=== PATIENT | female | born 1975 | race Caucasian/White ===

== ENCOUNTER 2018-12-24 11:36 | Emergency (ER) | payer MEDICAID, BC ==
[2018-12-24] MEDS ORDERED: Diph,Pert(Acell),Tet Vac 0.5 ML SYR IM ONE (13:14)
[2018-12-24] MEDS ORDERED: KETOROLAC 30 MG/ML VIAL IM ONE (13:15)
[2018-12-24] MEDS ORDERED: DOXYCYCLINE HYCLATE 100 MG CAPSULE PO ONE (13:21)
--- NOTE | 2018-12-24 13:33 | Emergency Department Record ---
History of Present Illness - General Chief Complaint: Animal Bite Stated Complaint: CAT BITE BOTH LEGS Time Seen by Provider: 12/24/18 12:50 Source: Patient Mode of Arrival: Ambulatory Limitations: No limitations - History of Present Illness Initial Comments: The patient is here due to being bitten by a stray cat about 2 hours ago. She was bit over the anterior L lower leg and had a mild scratch to the R lower leg. The patient denies any numbness distal to the injury and states she does need a Td shot. The cat did not have a collar on and was on her porch. The lower leg wounds did not bleed per the patient. MD Complaint: Animal bite Onset/Timin -: Hour(s) Location - General: Other Animal: Cat Description: Unknown animal Mechanism: Bite, Scratch Pain Description: Burning Severity scale (1-10): 4 Context: Animals fighting Associated Symptoms: Bleeding, Erythema - Related Data Patient Tetanus UTD (within 5 yrs): No Home Medications Medication Instructions Recorded Confirmed Last Taken Budesonide/Formoterol Fumarate 2 puff PO BID 12/24/18 12/24/18 12/24/18 [Symbicort 160-4.5 Mcg Inhaler] Budesonide/Formoterol Fumarate 2 puff PO BID 12/24/18 12/24/18 12/24/18 [Symbicort 160-4.5 Mcg Inhaler] Cholecalciferol (Vitamin D3) 1 cap PO WEEKLY 12/24/18 12/24/18 01/15/18 [Vitamin D3] Citalopram Hydrobromide 1 tab PO DAILY 12/24/18 12/24/18 12/23/18 [Citalopram HBr] Hydroxyzine HCl 1 tab PO DAILY 12/24/18 12/24/18 12/23/18 Tiotropium [place] [Spiriva 2 puff PO DAILY 12/24/18 12/24/18 12/24/18 Respimat] Previous Rx's Medication Instructions Recorded Doxycycline Monohydrate [Mondoxyne 100 mg PO BID 7 Days #14 capsule 12/24/18 Nl] Allergies Allergy/AdvReac Type Severity Reaction Status Date / Time acetaminophen [From [place]] Allergy ITCHING Verified 12/24/18 12:37 aspirin Allergy ASTHMA Verified 12/24/18 12:37 hydrocodone bitartrate Allergy ITCHING Verified 12/24/18 12:37 [From [place]] morphine Allergy HEADACHE Verified 12/24/18 12:37 Penicillins Allergy ASTHMA Verified 12/24/18 12:37 Travel Screening - Travel/Exposure Within Last 30 Days Have you traveled within the last 30 days?: No - Travel/Exposure Within Last Year Have you traveled outside the [place] in the last year?: No - Additonal Travel Details Have you been exposed to anyone with a communicable illness?: No - Travel Symptoms Symptom Screening: None Review of Systems Constitutional: Denies: Chills, Fever Past Medical History - SOCIAL HISTORY Smoking Status: Never smoker Alcohol Use: None Drug Use: None - RESPIRATORY Hx Respiratory Disorders: Yes Hx Asthma: Yes - CARDIOVASCULAR Hx Cardio Disorders: No - NEURO Hx Neuro Disorders: No - GI Hx GI Disorders: No - Hx Genitourinary Disorders: No - ENDOCRINE Hx Endocrine Disorders: No - MUSCULOSKELETAL Hx Musculoskeletal Disorders: No - PSYCH Hx Psych Problems: Yes Hx Anxiety: Yes Hx Depression: Yes - HEMATOLOGY/ONCOLOGY Hx Hematology/Oncology Disorders: No Family Medical History Any Significant Family History?: No Physical Exam - General General Appearance: Alert, Cooperative, No acute distress - Extremities Extremities exam: Full ROM, Normal capillary refill, Tenderness (There is tenderness around the L leg wounds but no swelling, bruising, or erythema.), Other (The lower legs are NVI distally. The leg wounds appear to be deep abrasions and not puncture wounds. There is no bleeding with palpation.). negative: Normal inspection (There are 3 areas of what appear to be superficial bite wounds to the anterior L mid lower leg. The wounds are not bleeding and there is no swelling or any signs of infection. None of the 3 wounds are over 1 cm. There is a very superficial abrasion to the anterior R lower leg anteriorly which was from a scratch by the cat.), Joint swelling - Neurological Neurological exam: Alert, Normal gait, Oriented X3. negative: Abnormal gait, Altered, Motor sensory deficit - Skin Skin exam: negative: Rash, Warm Course Vital Signs 12/24/18 12:46 Temperature 98.2 F Pulse Rate 84 Respiratory 20 Rate Blood Pressure 146/82 Pulse Ox 96 - Reevaluation(s) Reevaluation #1: I did have a long talk with the patient regarding Rabies shots. She would like to make an attempt to to find the cat. She is instructed to try to find the cat and then if successful contact animal control for quarantining the cat. If she unable to find the cat she is to start the Rabies shots in 3 days. 12/24/18 13:37 12/24/18 14:14 Medical Decision Making - Data Complexity MDM Data: X-Ray Ordered and/or Reviewed - Radiology Data Radiology results: Report reviewed (L lower leg: Neg for F/B or soft tissue air. ) Disposition Disposition: Discharge Clinical Impression: Cat bite involving extremity Disposition: Home, Self-Care Condition: (2) Stable Instructions: Animal Bite (ED) Additional Instructions: Keep the wounds washed daily and dressed with Abx ointment. Take the Doxycycline as directed. Please contact animal control on Wednesday and if unable to find the cat please start the Rabies shots early this next week. Return to the ER for any signs of infection. Prescriptions: Doxycycline Monohydrate [Mondoxyne Nl] 100 mg PO BID 7 Days #14 capsule Forms: Patient Portal Access Time of Disposition: 13:54 Quality - Quality Measures Quality Measures: N/A - Blood Pressure Screening View Details: Yes Does Patient Have Any of the Following: No Blood Pressure Classification: Pre-Hypertensive BP Reading Systolic Measurement: 146 Diastolic Measurement: 82 Screening for High Blood Pressure: < Pre-Hypertensive BP, F/U Documented > [ G8950] Pre-Hypertensive Follow-up Interventions: Referral to alternative/primary care provider.
--- NOTE | 2018-12-25 13:34 | RADIOLOGY REPORT ---
EXAM: LOWER LEG, LEFT HISTORY: CAT BITE TODAY WITHIN THE LEFT LOWER LEG. PUNCTURE WOUND WITHIN THE VINCENT. TECHNIQUE: AP and lateral views of the left tibia and fibula were obtained. COMPARISON: None. FINDINGS: A skin marker was placed at the site of puncture wound. There is no radiopaque foreign body or soft tissue air. The bones are intact. Plantar and posterior calcaneal spurs are present. IMPRESSION: NO ACUTE OSSEOUS ABNORMALITY OR RADIOPAQUE FOREIGN BODY. JOB NUMBER: [id number] [facility]
== END 2018-12-24 14:18 | disposition home or self-care (01) ==
LOC: ER 11:36
DX: S80.872A Other superficial bite, left lower leg, initial encounter (principal); S80.811A Abrasion, right lower leg, initial encounter; W55.01XA Bitten by cat, initial encounter
CPT/HCPCS: 90715; 96372; 99283; J1885

== ENCOUNTER 2019-01-04 14:33 | Emergency (ER) | payer MEDICAID, BC ==
[2019-01-04] MEDS ORDERED: RABIES IMMUNE GLOBULIN 150 UNIT/ML IM ONE ×2 (14:59→15:06)
[2019-01-04] MEDS ORDERED: RABIES VACCINE (RABAVERT) 2.5 IU VIAL IM ONE (14:59)
--- NOTE | 2019-01-04 15:13 | Emergency Department Record ---
History of Present Illness - General Chief Complaint: Animal Bite Stated Complaint: RABIES SHOT Time Seen by Provider: 01/04/19 15:02 Mode of Arrival: Ambulatory - History of Present Illness Initial Comments: bitten by a cat 1 days ago and the can't find the cat. Health department said to come in for rabies treatment. Wound on the left lower leg is healing nicely. Complaint: Animal bite Onset/Timin -: Days(s) Animal: Cat Description: Wild animal Mechanism: Bite, Scratch Severity scale (1-10): 1 Context: Other Associated Symptoms: None Treatments Prior to Arrival: Wound dressing(s) - Related Data Patient Tetanus UTD (within 5 yrs): Yes Previous Rx's Medication Instructions Recorded Doxycycline Monohydrate [Mondoxyne 100 mg PO BID 7 Days #14 capsule 12/24/18 Nl] Allergies Allergy/AdvReac Type Severity Reaction Status Date / Time aspirin Allergy ASTHMA Verified 01/04/19 14:49 hydrocodone bitartrate Allergy ITCHING Verified 01/04/19 14:49 [From [place]] morphine Allergy HEADACHE Verified 01/04/19 14:49 Penicillins Allergy ASTHMA Verified 01/04/19 14:49 Travel Screening - Travel/Exposure Within Last 30 Days Have you traveled within the last 30 days?: No - Travel/Exposure Within Last Year Have you traveled outside the [place] in the last year?: No - Additonal Travel Details Have you been exposed to anyone with a communicable illness?: No - Travel Symptoms Symptom Screening: None Review of Systems Reviewed: No additional complaints except as noted below Constitutional: Reports: As per HPI. Denies: Chills, Fever, Malaise, Night sweats, Weakness, Weight change Eyes: Reports: As per HPI. Denies: Eye discharge, Eye pain, Photophobia, Vision change ENT: Reports: As per HPI. Denies: Congestion, Dental pain, Ear pain, Epistaxis , Hearing loss, Throat pain Respiratory: Reports: As per HPI. Denies: Cough, Dyspnea, Hemoptysis, Stridor, Wheezes Cardiovascular: Reports: As per HPI. Denies: Arrhythmia, Chest pain, Dyspnea on exertion, Edema, Murmurs, Orthopnea, Palpitations, Paroxysmal nocturnal dyspnea, Rheumatic Fever, Syncope Endocrine: Reports: As per HPI. Denies: Fatigue, Heat or cold intolerance, Polydipsia, Polyuria Gastrointestinal: Reports: As per HPI. Denies: Abdominal pain, Constipation, Diarrhea, Hematemesis, Hematochezia, Melena, Nausea, Vomiting Genitourinary: Reports: As per HPI. Denies: Abnormal menses, Discharge, Dyspareunia, Dysuria, Frequency, Hematuria, Incontinence, Retention, Urgency Musculoskeletal: Reports: As per HPI. Denies: Arthralgia, Back pain, Gout, Joint swelling, Myalgia, Neck pain Skin: Reports: As per HPI. Denies: Bruising, Change in color, Change in hair/ nails, Lesions, Pruritus, Rash Neurological: Reports: As per HPI. Denies: Abnormal gait, Confusion, Headache, Numbness, Paresthesias, Seizure, Tingling, Tremors, Vertigo, Weakness Psychiatric: Reports: As per HPI. Denies: Anxiety, Auditory hallucinations, Depression, Homicidal thoughts, Suicidal thoughts, Visual hallucinations Hematological/Lymphatic: Reports: As per HPI. Denies: Anemia, Blood Clots, Easy bleeding, Easy bruising, Swollen glands Past Medical History - SOCIAL HISTORY Smoking Status: Never smoker Alcohol Use: None Drug Use: None - RESPIRATORY Hx Respiratory Disorders: Yes Hx Asthma: Yes - CARDIOVASCULAR Hx Cardio Disorders: No - NEURO Hx Neuro Disorders: No - GI Hx GI Disorders: No - Hx Genitourinary Disorders: No - ENDOCRINE Hx Endocrine Disorders: No - MUSCULOSKELETAL Hx Musculoskeletal Disorders: No - PSYCH Hx Psych Problems: Yes Hx Anxiety: Yes Hx Depression: Yes - HEMATOLOGY/ONCOLOGY Hx Hematology/Oncology Disorders: No Family Medical History Any Significant Family History?: Yes Physical Exam - General General Appearance: Alert, Oriented x3, Cooperative, No acute distress - Head Head exam: Normal inspection - Eye Eye exam: Normal appearance, PERRL Pupils: Normal accommodation - ENT ENT exam: Normal exam, Mucous membranes moist, Normal external ear exam, Normal orophraynx, TM's normal bilaterally Ear exam: Normal external inspection. negative: External canal tenderness Nasal Exam: Normal inspection. negative: Discharge, Sinus tenderness Mouth exam: Normal external inspection, Tongue normal Teeth exam: Normal inspection. negative: Dental caries Throat exam: Normal inspection. negative: Tonsillar erythema, Tonsillar exudate - Neck Neck exam: Normal inspection, Full ROM. negative: Tenderness - Respiratory Respiratory exam: Normal lung sounds bilaterally. negative: Respiratory distress - Cardiovascular Cardiovascular Exam: Regular rate, Normal rhythm, Normal heart sounds - GI/Abdominal GI/Abdominal exam: Soft, Normal bowel sounds. negative: Tenderness - Rectal Rectal exam: Deferred - exam: Deferred - Extremities Extremities exam: Normal inspection, Full ROM, Normal capillary refill. negative: Tenderness - Back Back exam: Reports: Normal inspection, Full ROM. Denies: Muscle spasm, Rash noted, Tenderness - Neurological Neurological exam: Alert, Normal gait, Oriented X3, Reflexes normal - Psychiatric Psychiatric exam: Normal affect, Normal mood - Skin Skin exam: Other (wounds are healing nicely) Course Vital Signs 01/04/19 14:38 Temperature 97.9 F Pulse Rate 76 Respiratory 18 Rate Blood Pressure 155/77 Pulse Ox 97 Disposition Clinical Impression: Rabies exposure Cat bite Qualifiers: Encounter type: sequela Qualified Code(s): W55.01XS - Bitten by cat, sequela Disposition: Home, Self-Care Condition: (1) Good Instructions: Animal Bite (ED) Additional Instructions: return in 3 days, 7 days and 14 days for vaccine booster shots Time of Disposition: 15:13 Quality - Quality Measures Quality Measures: N/A - Blood Pressure Screening Does Patient Have Any of the Following: No Blood Pressure Classification: Hypertensive Reading Systolic Measurement: 155 Diastolic Measurement: 77 Screening for High Blood Pressure: < Pre-Hypertensive BP, F/U Documented > [ G8950] Pre-Hypertensive Follow-up Interventions: Referral to alternative/primary care provider.
== END 2019-01-04 15:50 | disposition home or self-care (01) ==
LOC: ER 14:33
DX: Z20.3 Contact with and (suspected) exposure to rabies (principal); S80.872A Other superficial bite, left lower leg, initial encounter; W55.01XA Bitten by cat, initial encounter
CPT/HCPCS: 90375; 90675; 96372; 99282

== ENCOUNTER 2019-01-07 19:23 | Emergency (ER) | payer MEDICAID, BC ==
[2019-01-07] MEDS ORDERED: RABIES VACCINE (RABAVERT) 2.5 IU VIAL IM ONE (19:26)
--- NOTE | 2019-01-07 19:28 | Emergency Department Record ---
History of Present Illness - General Chief Complaint: Animal Bite Stated Complaint: 2ND RABIES SHOT Time Seen by Provider: 01/07/19 19:24 Source: Patient Mode of Arrival: Ambulatory Limitations: No limitations - History of Present Illness Initial Comments: 43 yo female presents to ED for her 3rd rabies vaccination. Patient was bitten by a cat 2 weeks ago, reports that her left lower extremity is healing well following her bites. Patient also reports finishing her Doxycyline several days ago. Patient denies complications following her cat bite. Patient denies health problems other than asthma. MD Complaint: Animal bite Onset/Timin -: Week(s) Left: Lower Leg Animal: Cat Mechanism: Bite Associated Symptoms: None - Related Data Previous Rx's Medication Instructions Recorded Doxycycline Monohydrate [Mondoxyne 100 mg PO BID 7 Days #14 capsule 12/24/18 ] Allergies Allergy/AdvReac Type Severity Reaction Status Date / Time aspirin Allergy ASTHMA Verified 01/04/19 14:49 hydrocodone bitartrate Allergy ITCHING Verified 01/04/19 14:49 [From [place]] morphine Allergy HEADACHE Verified 01/04/19 14:49 Penicillins Allergy ASTHMA Verified 01/04/19 14:49 Review of Systems Constitutional: Denies: Chills, Fever, Malaise, Night sweats Eyes: Denies: Eye discharge, Eye pain ENT: Denies: Congestion, Ear pain, Epistaxis Respiratory: Denies: Cough, Dyspnea Cardiovascular: Denies: Chest pain, Dyspnea on exertion Endocrine: Denies: Fatigue, Heat or cold intolerance Gastrointestinal: Denies: Abdominal pain, Nausea, Vomiting Genitourinary: Denies: Incontinence, Retention Musculoskeletal: Denies: Arthralgia, Back pain Skin: Reports: Other (Healing wound to the LLE). Denies: Bruising, Change in color Neurological: Denies: Abnormal gait, Confusion, Headache, Seizure Psychiatric: Denies: Anxiety Hematological/Lymphatic: Denies: Anemia, Blood Clots Past Medical History - SOCIAL HISTORY Smoking Status: Never smoker Drug Use: None - RESPIRATORY Hx Respiratory Disorders: Yes Hx Asthma: Yes - CARDIOVASCULAR Hx Cardio Disorders: No - NEURO Hx Neuro Disorders: No - GI Hx GI Disorders: No - Hx Genitourinary Disorders: No - ENDOCRINE Hx Endocrine Disorders: No - MUSCULOSKELETAL Hx Musculoskeletal Disorders: No - PSYCH Hx Psych Problems: Yes Hx Anxiety: Yes Hx Depression: Yes - HEMATOLOGY/ONCOLOGY Hx Hematology/Oncology Disorders: No Physical Exam - General General Appearance: Alert, Oriented x3, Cooperative, No acute distress Limitations: No limitations - Head Head exam: Atraumatic, Normocephalic, Normal inspection Head exam detail: negative: Abrasion, Contusion, Swan's sign, General tenderness, Hematoma, Laceration - Eye Eye exam: Normal appearance. negative: Conjunctival injection, Periorbital swelling, Periorbital tenderness, Scleral icterus - ENT Ear exam: negative: Auricular hematoma, Auricular trauma Nasal Exam: negative: Active bleeding, Discharge, Dried blood, Foreign body Mouth exam: negative: Drooling, Laceration, Muffled voice, Tongue elevation - Neck Neck exam: Normal inspection. negative: Meningismus, Tenderness - Respiratory Respiratory exam: Normal lung sounds bilaterally. negative: Rales, Respiratory distress, Rhonchi, Stridor - Cardiovascular Cardiovascular Exam: Regular rate, Normal rhythm, Normal heart sounds - GI/Abdominal GI/Abdominal exam: Soft. negative: Rebound, Rigid, Tenderness - Rectal Rectal exam: Deferred - exam: Deferred - Extremities Extremities exam: Other (Healing wounds to the LLE on examination without evidence for secondary infection.). negative: Calf tenderness, Pedal edema, Tenderness - Back Back exam: Denies: CVA tenderness (R) - Neurological Neurological exam: Alert, Normal gait, Oriented X3 - Psychiatric Psychiatric exam: Normal affect, Normal mood - Skin Skin exam: Normal color. negative: Abrasion Type of lesion: negative: abrasion Course - Reevaluation(s) Reevaluation #1: 01/07/19 19:32 Patient was seen and examined, wounds to the LLE are healing well without evidence for infection. 3rd Rabies vaccination administered, patient appears stable for discharge at this time. Disposition Disposition: Discharge Clinical Impression: Encounter for repeat administration of rabies vaccination Disposition: Home, Self-Care Condition: (2) Stable Instructions: Animal Bite (ED) Additional Instructions: Return to ED if your symptoms worsen or if you have any concerns. Final rabies vaccination in 1 week. Follow-up with your family doctor in 1 week as directed. Forms: Patient Portal Access Time of Disposition: 19:28 Quality - Quality Measures Quality Measures: N/A - Blood Pressure Screening Does Patient Have Any of the Following: No Blood Pressure Classification: Pre-Hypertensive BP Reading Systolic Measurement: 130 Diastolic Measurement: 87 Screening for High Blood Pressure: < Pre-Hypertensive BP, F/U Documented > [ G8950] Pre-Hypertensive Follow-up Interventions: Referral to alternative/primary care provider.
== END 2019-01-07 19:40 | disposition home or self-care (01) ==
LOC: ER 19:23
DX: Z20.3 Contact with and (suspected) exposure to rabies (principal); S80.872A Other superficial bite, left lower leg, initial encounter; W55.01XA Bitten by cat, initial encounter
CPT/HCPCS: 90675; 96372; 99282

== ENCOUNTER 2019-05-06 18:44 | Emergency (ER) | payer MEDICAID, BC ==
[2019-05-06] MEDS ORDERED: IPRATROPIUM/ALBUTEROL (0.5MG/3MG) NEB INH ONE (19:16)
[2019-05-06] MEDS ORDERED: METHYLPREDNISOLONE PF 125MG/VIAL IVP ONE (19:16)
[2019-05-06 19:31] LABS: ABSOLUTE NEUTROPHIL COUNT 5.46; BASO % 0.4 % (0-6); EOS % 2.3 % (0-6); HEMATOCRIT 38.9 % (35.0-47.0); HEMOGLOBIN 12.6 gm/dl (11.6-16.0); LYMPH % 20.7 % (16-45); MEAN CELL VOLUME 86.1 fl (81-97); MEAN CORPUSCULAR HEMOGLOBIN 27.9 pg (27-33); MEAN CORPUSCULAR HGB CONC 32.4 g/dl (32-36); MEAN PLATELET VOLUME 10.4 fl (7.4-10.4); MONO % 5.6 % (0-9); PLATELET COUNT 299 K/uL (130-400); RED BLOOD COUNT 4.52 M/uL (3.80-5.40); RED CELL DISTRIBUTION WIDTH 14.4 % (11.5-14.5); WHITE BLOOD COUNT W/O DIFF 7.7 K/uL (4.2-12.2)
[2019-05-06 19:40] LABS: BLOOD UREA NITROGEN 12 mg/dL (6-20); CREATININE 0.8 mg/dL (0.5-0.9); EST GLOMERULAR FILTRATION RATE > 60 mL/min
[2019-05-06 19:41] LABS: TOTAL PROTEIN 6.7 g/dL (6.6-8.7)
[2019-05-06 19:43] LABS: GLUCOSE,RANDOM 126 mg/dL (74-109)
[2019-05-06 19:45] LABS: ALB/GLOB RATIO 1.4 (1.1-1.8); ALBUMIN 3.9 g/dL (4.0-5.0); ALT/SGPT 15 U/L (<33); AST/SGOT 14 U/L (10.0-35.0)
[2019-05-06 19:46] LABS: ALKALINE PHOSPHATASE 73 U/L (35-104)
[2019-05-06 19:48] LABS: NTpro B-NATRIURETIC PEPTIDE 75.47 pg/mL (<125)
[2019-05-06] MEDS ORDERED: KETOROLAC 30 MG/ML VIAL IVP ONE (20:34)
[2019-05-06] MEDS ORDERED: PROMETHAZINE W/CODEINE 10ML UD PO ONE (20:38)
--- NOTE | 2019-05-06 20:44 | Emergency Department Record ---
History of Present Illness - General Chief Complaint: Headache Migraine Stated Complaint: FLU LIKE SYMPTOMS Time Seen by Provider: 05/06/19 19:04 Source: Patient Mode of Arrival: Ambulatory Limitations: No limitations - History of Present Illness Initial Comments: pt has had anuri for a week. she was seen at an urgent care and was started on doxycyclin. she feels no better and feens ildefonso ESTES Complaint: Cough, Nasal congestion, Rhinorrhea, Sinus pain -: Days(s) Severity: Moderate Severity scale (1-10): 3 Consistency: Constant Improves With: Nothing Worsens With: Nothing Context: Sick contacts Associated Symptoms: Cough, Shortness of breath Treatments Prior to Arrival: Antibiotics - Related Data Previous Rx's Medication Instructions Recorded Doxycycline Monohydrate [Mondoxyne 100 mg PO BID 7 Days #14 capsule 12/24/18 Nl] Prednisone [Prednisone 20Mg] 20 mg PO Q12HR #8 tab 05/06/19 Promethazine HCl/Codeine 5 - 10 ml PO .AT BEDTIME PRN #118 05/06/19 [Phenergan W/Codeine] ml Allergies Allergy/AdvReac Type Severity Reaction Status Date / Time acetaminophen [From Vicodin] Allergy ITCHING Verified 05/06/19 18:59 aspirin Allergy ASTHMA Verified 05/06/19 18:58 hydrocodone [From Vicodin] Allergy ITCHING Verified 05/06/19 18:59 hydrocodone bitartrate Allergy ITCHING Verified 05/06/19 18:58 [From [place]] morphine Allergy HEADACHE Verified 05/06/19 18:58 Penicillins Allergy ASTHMA Verified 05/06/19 18:58 Travel Screening - Travel/Exposure Within Last 30 Days Have you traveled within the last 30 days?: No Review of Systems Reviewed: No additional complaints except as noted below Constitutional: Reports: As per HPI. Denies: Chills, Fever, Malaise, Night sweats, Weakness, Weight change Eyes: Reports: As per HPI. Denies: Eye discharge, Eye pain, Photophobia, Vision change ENT: Reports: As per HPI. Denies: Congestion, Dental pain, Ear pain, Epistaxis, Hearing loss, Throat pain Respiratory: Reports: As per HPI, Cough, Dyspnea. Denies: Hemoptysis, Stridor, Wheezes Cardiovascular: Reports: As per HPI. Denies: Arrhythmia, Chest pain, Dyspnea on exertion, Edema, Murmurs, Orthopnea, Palpitations, Paroxysmal nocturnal dyspnea, Rheumatic Fever, Syncope Endocrine: Reports: As per HPI. Denies: Fatigue, Heat or cold intolerance, Polydipsia, Polyuria Gastrointestinal: Reports: As per HPI. Denies: Abdominal pain, Constipation, Diarrhea, Hematemesis, Hematochezia, Melena, Nausea, Vomiting Genitourinary: Reports: As per HPI. Denies: Abnormal menses, Discharge, Dyspar eunia, Dysuria, Frequency, Hematuria, Incontinence, Retention, Urgency Musculoskeletal: Reports: As per HPI. Denies: Arthralgia, Back pain, Gout, Joint swelling, Myalgia, Neck pain Skin: Reports: As per HPI. Denies: Bruising, Change in color, Change in hair/nails, Lesions, Pruritus, Rash Neurological: Reports: As per HPI. Denies: Abnormal gait, Confusion, Headache, Numbness, Paresthesias, Seizure, Tingling, Tremors, Vertigo, Weakness Psychiatric: Reports: As per HPI. Denies: Anxiety, Auditory hallucinations, Depression, Homicidal thoughts, Suicidal thoughts, Visual hallucinations Hematological/Lymphatic: Reports: As per HPI. Denies: Anemia, Blood Clots, Easy bleeding, Easy bruising, Swollen glands Past Medical History - SOCIAL HISTORY Smoking Status: Never smoker Alcohol Use: None Drug Use: None - RESPIRATORY Hx Respiratory Disorders: Yes Hx Asthma: Yes - CARDIOVASCULAR Hx Cardio Disorders: No - NEURO Hx Neuro Disorders: No - GI Hx GI Disorders: No - Hx Genitourinary Disorders: No - ENDOCRINE Hx Endocrine Disorders: No - MUSCULOSKELETAL Hx Musculoskeletal Disorders: No - PSYCH Hx Psych Problems: Yes Hx Anxiety: Yes Hx Depression: Yes - HEMATOLOGY/ONCOLOGY Hx Hematology/Oncology Disorders: No Family Medical History Any Significant Family History?: No Physical Exam - General General Appearance: Alert, Oriented x3, Cooperative, Mild distress - Head Head exam: Normal inspection - Eye Eye exam: Normal appearance, PERRL, EOMI Pupils: Normal accommodation - ENT ENT exam: Normal exam, Mucous membranes moist, Normal external ear exam, Normal orophraynx Ear exam: Normal external inspection. negative: External canal tenderness Nasal Exam: Normal inspection. negative: Discharge, Sinus tenderness Mouth exam: Normal external inspection, Tongue normal Teeth exam: Normal inspection. negative: Dental caries Throat exam: Normal inspection. negative: Tonsillar erythema, Tonsillar exudate - Neck Neck exam: Normal inspection, Full ROM. negative: Tenderness - Respiratory Respiratory exam: Normal lung sounds bilaterally. negative: Respiratory distress - Cardiovascular Cardiovascular Exam: Regular rate, Normal rhythm, Normal heart sounds - GI/Abdominal GI/Abdominal exam: Soft, Normal bowel sounds. negative: Tenderness - Rectal Rectal exam: Deferred - exam: Deferred - Extremities Extremities exam: Normal inspection, Full ROM, Normal capillary refill. negative: Tenderness - Back Back exam: Reports: Normal inspection, Full ROM. Denies: Muscle spasm, Rash noted, Tenderness - Neurological Neurological exam: Alert, CN II-XII intact, Normal gait, Oriented X3 - Psychiatric Psychiatric exam: Normal affect, Normal mood - Skin Skin exam: Dry, Intact, Normal color, Warm Course Vital Signs 05/06/19 05/06/19 05/06/19 18:53 19:44 20:10 Temperature 98.4 F Pulse Rate 68 Pulse Rate [ 87 Left] Pulse Rate [ 76 Pulse Ox Probe] Respiratory 16 16 18 Rate Blood Pressure 144/96 [Left Arm] Blood Pressure 107/71 [Right Arm] Pulse Ox 98 97 98 Medical Decision Making - Lab Data Result diagrams: 05/06/19 19:24 05/06/19 19:24 Lab Results 05/06/19 05/06/19 Range/Units 19:24 19:24 WBC 7.7 (4.2-12.2) K/uL RBC 4.52 (3.80-5.40) M/uL Hgb 12.6 (11.6-16.0) gm/dl Hct 38.9 (35.0-47.0) % MCV 86.1 (81-97) fl MCH 27.9 (27-33) pg MCHC 32.4 (32-36) g/dl RDW 14.4 (11.5-14.5) % Plt Count 299 (130-400) K/uL MPV 10.4 (7.4-10.4) fl Gran % 71.0 (47-80) % Lymphocytes % 20.7 (16-45) % Monocytes % 5.6 (0-9) % Eosinophils % 2.3 (0-6) % Basophils % 0.4 (0-6) % Absolute Neutrophils 5.46 Sodium 143 (136-145) mmol/L Potassium 3.6 (3.4-4.5) mmol/L Chloride 106 (98-107) mmol/L Carbon Dioxide 28.0 (22-29) mmol/L Anion Gap 9.0 (7-16) BUN 12 (6-20) mg/dL Creatinine 0.8 (0.5-0.9) mg/dL Estimated GFR > 60 mL/min Random Glucose 126 H (74-109) mg/dL Calcium 8.8 (8.6-10.0) mg/dL Total Bilirubin 0.50 (0.2-1.0) mg/dL AST 14 (10.0-35.0) U/L ALT 15 (<33) U/L Alkaline Phosphatase 73 (35-104) U/L NT-Pro-B Natriuret Pep 75.47 (<125) pg/mL Total Protein 6.7 (6.6-8.7) g/dL Albumin 3.9 L (4.0-5.0) g/dL Globulin 2.8 (1.4-4.8) gm/dL Albumin/Globulin Ratio 1.4 (1.1-1.8) Disposition Disposition: Discharge Clinical Impression: Bronchitis Asthmatic bronchitis Qualifiers: Asthma severity: mild Asthma persistence: persistent Asthma complication type: with acute exacerbation Qualified Code(s): J45.31 - Mild persistent asthma with (acute) exacerbation Disposition: Home, Self-Care Condition: (1) Good Instructions: Acute Bronchitis (ED), Asthma (ED) Additional Instructions: continue current antibiotics. follow up with family doctor. return sooner if worse Prescriptions: Prednisone [Prednisone 20Mg] 20 mg PO Q12HR #8 tab Promethazine HCl/Codeine [Phenergan W/Codeine] 5 - 10 ml PO .AT BEDTIME PRN #118 ml PRN Reason: Cough Quality - Quality Measures Quality Measures: N/A - Blood Pressure Screening Does Patient Have Any of the Following: No Blood Pressure Classification: Normal BP Reading Systolic Measurement: 107 Diastolic Measurement: 71 Screening for High Blood Pressure: < Normal BP, F/U Not Required > [G8783]
--- NOTE | 2019-05-09 08:46 | RADIOLOGY REPORT ---
EXAM: CHEST, TWO VIEWS HISTORY: COUGH. TECHNIQUE: PA and lateral views of the chest were obtained. Comparison: Two view chest 03/31/17. FINDINGS: The heart size is normal. No definite acute infiltrate seen. No pleural effusion or pneumothorax evident. Hypertrophic spurring particularly in the mid thoracic spine. IMPRESSION: 1. SOME HYPERTROPHIC SPURRING IN THE THORACIC SPINE. 2. NO DEFINITE ACUTE INFILTRATE SEEN. JOB NUMBER: [id number] MTDD
== END 2019-05-06 21:23 | disposition home or self-care (01) ==
LOC: ER 18:44
DX: J45.31 Mild persistent asthma with (acute) exacerbation (principal); R06.02 Shortness of breath
CPT/HCPCS: 71046; 80053; 83880; 85025; 85379; 94640; 96374; 96375; 99284; J1885; J2930